=== PATIENT | male | born 1955 | race Caucasian/White ===

== ENCOUNTER 2020-11-20 14:24 | Emergency (ER) | payer SELFPAY ==
[~2020-11-20] VITALS: Ht 177.8 cm; Wt 95.0 kg
[2020-11-20] MEDS ORDERED: LIDOCAINE HCL/PF 1% 10 MG/ML 5ML VIAL IJ ONE (15:30)
[2020-11-20] MEDS ORDERED: BACITRACIN ZINC OINT UDPKT TOP ONE (15:30)
[2020-11-20] MEDS ORDERED: TETANUS, DIPHTHERIA, PERTUSSIS VAC/PF 0.5ML (>7YR OLD) IM ONE (15:30)
[2020-11-20] MEDS ORDERED: IBUPROFEN 600MG TABLET PO ONE (15:30)
[2020-11-20] MEDS ORDERED: CEFAZOLIN 1000MG PREMIX 50 ML IV ONE (16:30)
[2020-11-20] MEDS ORDERED: HYDROCODONE/ACETAMINOPHEN 10/325MG TABLET PO ONE (16:30)
[2020-11-20 17:24] LABS: BASOPHILS % 0.2 % (0.0-2.0); EOSINOPHILS % 1.3 % (0.0-5.0); HEMATOCRIT. 44.3 % (42.0-52.0); HEMOGLOBIN. 14.7 g/dL (14.0-18.0); LYMPHOCYTES % 16.8 % (20.0-50.0); MEAN CORPUSCULAR VOLUME 87.6 fL (80.0-94.0); MONOCYTES % 4.6 % (2.0-8.0); NEUTROPHILS % 77.1 % (40.0-76.0); PLATELET 271 x1000/uL (130-400); RED BLOOD CELL COUNT 5.06 mill/uL (4.7-6.1); RED CELL DISTRIBUTION WIDTH 13.6 % (11.6-14.6)
[2020-11-20 17:27] LABS: CHLORIDE 104 mEq/L (98-107)
[2020-11-20] MEDS ORDERED: AMOX-424 MT (17:37)
[2020-11-20 18:07] VITALS: BP 150/86
== END 2020-11-20 18:09 | disposition left against medical advice (07) ==
LOC: ER 14:55
DX: S62.601B Fracture of unspecified phalanx of left index finger, initial encounter for open fracture (principal); S62.605B Fracture of unspecified phalanx of left ring finger, initial encounter for open fracture; S66.327A Laceration of extensor muscle, fascia and tendon of left little finger at wrist and hand level, initial encounter; S66.321A Laceration of extensor muscle, fascia and tendon of left index finger at wrist and hand level, initial encounter; S66.325A Laceration of extensor muscle, fascia and tendon of left ring finger at wrist and hand level, initial encounter; M79.662 Pain in left lower leg; W27.0XXA Contact with workbench tool, initial encounter; Y93.89 Activity, other specified; Y92.89 Other specified places as the place of occurrence of the external cause; I10 Essential (primary) hypertension; E78.00 Pure hypercholesterolemia, unspecified
CPT/HCPCS: 36415; 73130; 80048; 85025; 99284; A4217; J3490; Z7610